=== PATIENT | female | born 1990 | race Caucasian/White ===

== ENCOUNTER 2017-01-20 13:00 | Inpatient (IN) | payer BC ==
[2017-01-20 18:42] VITALS: BMI 33.4
--- NOTE | 2017-01-20 20:27 | HP ---
Admission ROS [facility] Chief Complaint: I WANT TO GO TO REHAB Allergies/Adverse Reactions: Allergies Allergy/AdvReac Type Severity Reaction Status Date / Time Fish Containing Products Allergy Mild Verified 01/20/17 19:31 turkey Allergy Mild Hives Verified 01/20/17 19:31 History of Present Illness: 26 YEARS OLD FEMALE WITH LONG HISTORY OF OPIATE NICOTINE, HAS ASTHMA AND LEFT ANKLE CHRONIC JPAIN SINCE 2014 AND BIPOLAR IS ADMITTED TO REHAB Exam Limitations: No Limitations - Ebola screening Have you traveled outside of the country in the last 21 days: No Have you had contact with anyone from an Ebola affected area: No Have you been sick,other than usual withdrawal symptoms: No Do you have a fever: No - Review of Systems Constitutional: Weight Stable EENT: reports: No Symptoms Reported Respiratory: reports: SOB with Exertion Cardiac: reports: No Symptoms Reported GI: reports: Constipated : reports: Flank Pain Musculoskeletal: reports: Back Pain, Joint Pain (LEFT ANKLE), Muscle Pain (KNEES ) Integumentary: reports: No Symptoms Reported Neuro: reports: Seizure (2014 NO TREATMENT), Tremors Endocrine: reports: No Symptoms Reported Hematology: reports: No Symptoms Reported Psychiatric: reports: Judgement Intact, Orientated x3, Anxious, Depressed Other Systems: Reviewed and Negative Patient History - Patient Medical History Hx Anemia: No Hx Asthma: Yes Hx Chronic Obstructive Pulmonary Disease (COPD): No Hx Cancer: No Hx Cardiac Disorders: No Hx Congestive Heart Failure: No Hx Hypertension: No Hx Hypercholesterolemia: No Hx Pacemaker: No HX Cerebrovascular Accident: No Hx Seizures: Yes (2014) Hx Dementia: No Hx Diabetes: No Hx Gastrointestinal Disorders: No Hx Liver Disease: No Hx Genitourinary Disorders: No Hx Sexually Transmitted Disorders: No Hx Renal Disease (ESRD): No Hx Thyroid Disease: No Hx Human Immunodeficiency Virus (HIV): No Hx Hepatitis C: No Hx Depression: No Hx Suicide Attempt: No Hx Bipolar Disorder: Yes Hx Schizophrenia: No - Patient Surgical History Past Surgical History: Yes Hx Neurologic Surgery: No Hx Cataract Extraction: No Hx Cardiac Surgery: No Hx Lung Surgery: No Hx Breast Surgery: No Hx Breast Biopsy: No Hx Abdominal Surgery: No Hx Appendectomy: No Hx Cholecystectomy: No Hx Genitourinary Surgery: No Hx Section: No Hx Orthopedic Surgery: Yes (LEFT ANKLE 2014) Hx Hysterectomy: No Anesthesia Reaction: No - PPD History Previous Implant?: Yes Documented Results: Negative w/proof Implanted On Prior [facility] Admission?: No PPD to be Administered?: Yes - Reproductive History Patient is a Female of Child Bearing Age (11 -55 yrs old): Yes Last Menstrual Period: 01/15/17 Patient : No - Smoking Cessation Smoking history: Current every day smoker Have you smoked in the past 12 months: Yes Aproximately how many cigarettes per day: 3 Cigars Per Day: 0 Hx Chewing Tobacco Use: No Initiated information on smoking cessation: Yes 'Breaking Loose' booklet given: 01/20/17 - Substance & Tx. History Hx Alcohol Use: No Hx Substance Use: Yes Substance Use Type: Opiates Hx Substance Use Treatment: Yes - Substances Abused Heroin Route: Injection Frequency: Daily Amount used: 2 BOUNDL Age of first use: 19 Date of Last Use: 01/13/17 Family Disease History - Family Disease History Family Disease History: Diabetes: Father, Mother, Heart Disease: Father Admission Physical Exam [facility] - Vital Signs Vital Signs: Vital Signs - 24 hr 01/20/17 18:39 Temperature 96.3 F L Pulse Rate 91 H Respiratory 20 Rate Blood Pressure 121/69 - Physical General Appearance: Yes: No Apparent Distress, Appropriately Dressed, Obese HEENTM: Yes: Hearing grossly Normal, Normal ENT Inspection, Normocephalic, Normal Voice Respiratory: Yes: Chest Non-Tender, Lungs Clear, Normal Breath Sounds, No Respiratory Distress, No Accessory Muscle Use Neck: Yes: Supple, Trachea in good position Breast: Yes: Breasts Symetrical Cardiology: Yes: Regular Rhythm, Regular Rate, S1, S2 Abdominal: Yes: Non Tender, Soft Genitourinary: Yes: Within Normal Limits Back: Yes: Normal Inspection Musculoskeletal: Yes: full range of Motion, Gait Steady, Muscle Pain (LEFT ANKLE ) Extremities: Yes: Normal Range of Motion, Non-Tender, Swelling (RIGHT ANKLE) Neurological: Yes: Alert, Motor Strength 5/5, Normal Response, Depressed Affect Integumentary: Yes: Warm Lymphatic: Yes: Within Normal Limits - Diagnostic (1) Opioid dependence with withdrawal Current Visit: Yes Status: Acute (2) Nicotine dependence Current Visit: Yes Status: Acute Qualifiers: Nicotine product type: cigarettes Substance use status: in withdrawal Qualified Code(s): F17.213 - Nicotine dependence, cigarettes, with withdrawal (3) Asthma Current Visit: Yes Status: Acute Qualifiers: Asthma severity: mild intermittent Asthma complication type: with status asthmaticus Qualified Code(s): J45.22 - Mild intermittent asthma with status asthmaticus (4) Bipolar II disorder Current Visit: Yes Status: Suspected (5) Chronic pain of right ankle Current Visit: Yes Status: Chronic Comment: SWELL OF THE RIGHT ANKLE Cleared for Admission [facility] - Detox or Rehab [facility] Level of Care: Observation Bed Detox Regimen/Protocol: Not Applicable Claeared for Rehab Admission: Yes [facility] Breath Alcohol Content Breath Alcohol Content: 0 Urine Pregancy Test - Result Urine Test Results: Negative- NO Line Present Urine Drug Screen - Results Drug Screen Negative: No Urine Drug Screen Results: OPI-Opiates, BZO-Benzodiazepines, TCA-Tricyclic Antidepress
[2017-01-20] MEDS ORDERED: MAGNESIUM CITRATE 300 ML BOTTLE PO PRN (20:37)
[2017-01-20] MEDS ORDERED: P-EPHED 60MG/TRIPROLIDI 2.5MG TABLET PO PRN (20:37)
[2017-01-20] MEDS ORDERED: NICOTINE POLACRILEX 2 MG GUM BC PRN (20:37)
[2017-01-20] MEDS ORDERED: LOPERAMIDE HCL 2 MG CAPSULE PO PRN (20:37)
[2017-01-20] MEDS ORDERED: MAGNESIUM HYDROX 2400MG/30ML ORAL SUSPENSION 30 ML CUP PO PRN (20:37)
[2017-01-20] MEDS ORDERED: MAG HYDROX/AL HYDROX/SIMETH 30 ML UNIT-DOSE CUP PO PRN (20:37)
[2017-01-20] MEDS ORDERED: guaiFENesin/D-METHORPHAN HB 10 ML UNIT-DOSE CUPS PO PRN (20:37)
[2017-01-20] MEDS ORDERED: ACETAMINOPHEN 325 MG TABLET (FP) PO PRN (20:37)
[2017-01-20] MEDS ORDERED: IBUPROFEN 400 MG TABLET (FP) PO PRN (20:37)
[2017-01-20] MEDS ORDERED: MENTHOL/PHENOL 1 EACH UD MM PRN (20:37)
[2017-01-20] MEDS ORDERED: ALBUTEROL SO4 6.7 GM HFA INHALER IH PRN (20:42)
[2017-01-20] MEDS ORDERED: ALBUTEROL SO4 2.5/IPRATROPIUM 0.5 INH SOL 3 ML VIAL.NEB. NEB PRN (20:43)
[2017-01-20] MEDS: CYCLOBENZAPRINE HCL 10 MG TABLET (FP) PO PRN (22:58)
[2017-01-20] MEDS: GABAPENTIN 300 MG CAPSULE (FP) PO SCH (22:58)
[2017-01-20] MEDS: diphenhydrAMINE HCL 50 MG CAPSULE PO PRN (22:58)
[2017-01-20] MEDS: THIAMINE HCL 100 MG TABLET (FP) PO SCH (23:02)
[2017-01-20 23:11] LABS: URINE APPEARANCE TURBID; URINE BILIRUBIN NEGATIVE (NEGATIVE); URINE BLOOD NEGATIVE (NEGATIVE); URINE COLOR AMBER; URINE GLUCOSE (UA) NEGATIVE (NEGATIVE); URINE KETONE NEGATIVE (NEGATIVE); URINE LEUK ESTERASE NEGATIVE (NEGATIVE); URINE NITRITE NEGATIVE (NEGATIVE); URINE PROTEIN NEGATIVE (NEGATIVE); URINE UROBILINOGEN NEGATIVE E.U./dl (0.2-1.0)
[2017-01-21] MEDS: GABAPENTIN 300 MG CAPSULE (FP) PO SCH ×3 (07:06→21:18)
[2017-01-21 10:39] LABS: MCHC 32.4 g/dl (32.0-36.0); MEAN CELL VOLUME 80.3 fl (80-96); MEAN PLT VOLUME 9.7 fl (7.5-11.1); PLATELET COUNT 217 K/MM3 (134-434); RDW 17.6 % (11.6-15.6); WHITE BLOOD COUNT 8.4 K/mm3 (4.0-10.0)
[2017-01-21] MEDS: NICOTINE 14 MG/24 HOURS TOPICAL PATCH TD SCH (10:39)
[2017-01-21] MEDS: PRENATAL VITAMINS W/ FOLIC ACID TABLET (FP) PO SCH (10:39)
[2017-01-21] MEDS: CYCLOBENZAPRINE HCL 10 MG TABLET (FP) PO PRN (10:42)
[2017-01-21 10:51] LABS: ALBUMIN 3.4 g/dl (3.4-5.0); ALK PHOS 59 U/L (45-117); ANION GAP 8 (8-16); BILIRUBIN,TOTAL 0.2 mg/dL (0.2-1.0); CALCIUM 8.7 mg/dL (8.5-10.1); CO2 24 mmol/L (21-32); CREATININE 0.9 mg/dL (0.55-1.02); GLUCOSE,RANDOM 77 mg/dL (74-106); SGOT/AST 7 U/L (15-37); SGPT/ALT 12 U/L (12-78); TOT PROT 6.7 g/dl (6.4-8.2)
[2017-01-21] MEDS ORDERED: IBUPROFEN 400 MG TABLET (FP) PO PRN (14:46)
[2017-01-21] MEDS: traZODone HCL 50 MG TABLET (FP) PO PRN ×2 (15:31→21:18)
[2017-01-21] MEDS: FUROSEMIDE 20 MG TABLET (FP) PO SCH (15:31)
--- NOTE | 2017-01-21 15:46 | HP ---
Psychiatrist Admission - Data Date of interview: 01/21/17 Admission source: [facility] Identifying data: This is the first 3e inpatient rehabilitation admission for this 26 year old [place]ocanian/Rumanian female, who is single, residing in [facility]. Medical History: h/o asthma, seizure x1 in 2015 after head injury, left ankle surgery with chronic pain and swelling, also swelling of right ankle, and arthritis of back, smokes 3-4 cigarettes a day. Psychiatric History: Patient reports was dianosed as Bipolar disorder and Anxiety, on and off medications states she geat klonopin 2 mg po tid for anxiety , topamax 100 mg po bid, gabapentin 600 mg po tid, states was on hgh dosage of lithium while in rehabilitation treatment program and trazodone prn for anxiety. Reports no history of psychiatric hospiltaliztions except for one ER visit a few months ago when he sister called 911 "she thought I was suicidal and needed help", states she was discharged after 24 hours of observation. Patient is irritable and angry. Physical/Sexual Abuse/Trauma History: Denies history of abuse Vital Signs: Vital Signs - 24 hr 01/20/17 01/21/17 01/21/17 18:39 00:30 03:30 Temperature 96.3 F L Pulse Rate 91 H Respiratory 20 16 16 Rate Blood Pressure 121/69 01/21/17 15:30 Temperature Pulse Rate 77 Respiratory Rate Blood Pressure 123/77 Allergies/Adverse Reactions: Allergies Allergy/AdvReac Type Severity Reaction Status Date / Time Fish Containing Products Allergy Mild Verified 01/20/17 19:31 turkey Allergy Mild Hives Verified 01/20/17 19:31 Date of last physical exam: 01/20/17 Concur with the findings of this exam: Yes - Substance Abuse/Tx History Hx Alcohol Use: No Hx Substance Use: Yes Substance Use Type: Heroin (up to 20 bags a day injecting), Tranquilizers ( klonopin states prescribed as PRN) Hx Substance Use Treatment: Yes - Admission Criteria Previous failed treatment: Yes Poor recovery environment: Yes Comorbidities: Yes Lacks judgement: Yes Mental Status Exam - Mental Status Exam Alert and Oriented to: Time, Place, Person Cognitive Function: Grossly Intact Patient Appearance: Disheveled Mood: Angry, Depressed, Anxious, Irritable Affect: Mood Congruent Patient Behavior: Cooperative Speech Pattern: Clear, Appropriate Voice Loudness: Normal Thought Process: Intact, Goal Oriented Thought Disorder: Not Present Hallucinations: Denies Suicidal Ideation: Denies Homicidal Ideation: Denies Insight/Judgement: Fair Sleep: Fair, Difficulty falling asleep Appetite: Fair Muscle strength/Tone: Normal Gait/Station: Normal Psychiatric Findings - Problem List ([place] 1, 2,3) (1) Nicotine dependence Current Visit: Yes Status: Acute Qualifiers: Nicotine product type: cigarettes Substance use status: in withdrawal Qualified Code(s): F17.213 - Nicotine dependence, cigarettes, with withdrawal (2) Chronic pain of right ankle Current Visit: Yes Status: Chronic Comment: SWELL OF THE RIGHT ANKLE (3) Bipolar II disorder Current Visit: Yes Status: Suspected (4) Opioid dependence Current Visit: Yes Status: Acute - Initial Treatment Plan Initial Treatment Plan: continue topamax, gabapentin, add lithium 150 mg po bid( needs adjustment),tazodone 50 mg po q 4 hrs prn, monitor rpogress as needed.
--- NOTE | 2017-01-21 18:01 | EKG ---
Test Reason : Blood Pressure : / mmHG Vent. Rate : 068 BPM Atrial Rate : 068 BPM P-R Int : 144 ms QRS Dur : 094 ms QT Int : 416 ms P-R-T Axes : 073 061 051 degrees QTc Int : 442 ms NORMAL SINUS RHYTHM NORMAL ECG NO PREVIOUS ECGS AVAILABLE Confirmed by MELISSA NY MD ([id number]) on 01/21/2017 6:01:22 PM Referred By: LUIS Confirmed By:MELISSA NY MD
[2017-01-21] MEDS: THIAMINE HCL 100 MG TABLET (FP) PO SCH (21:18)
[2017-01-21] MEDS: TOPIRAMATE 100 MG TABLET PO SCH (21:18)
[2017-01-21] MEDS: LITHIUM CARBONATE 150 MG CAPSULE PO SCH (21:19)
[2017-01-22] MEDS: GABAPENTIN 300 MG CAPSULE (FP) PO SCH ×3 (06:36→23:02)
[2017-01-22] MEDS: FUROSEMIDE 20 MG TABLET (FP) PO SCH (10:46)
[2017-01-22] MEDS: PRENATAL VITAMINS W/ FOLIC ACID TABLET (FP) PO SCH (10:46)
[2017-01-22] MEDS: TOPIRAMATE 100 MG TABLET PO SCH ×2 (10:46→23:02)
[2017-01-22] MEDS: LITHIUM CARBONATE 150 MG CAPSULE PO SCH ×2 (10:46→23:02)
[2017-01-22] MEDS: NICOTINE 14 MG/24 HOURS TOPICAL PATCH TD SCH (10:46)
[2017-01-22] MEDS ORDERED: cloNIDine HCL 0.1 MG TABLET PO ONE (17:00)
[2017-01-22] MEDS: hydrOXYzine PAMOATE 50 MG CAPSULE (FP) PO PRN (17:10)
[2017-01-22] MEDS ORDERED: PT OWN MED DRAWER 7, Y5N ONE (19:29)
[2017-01-22] MEDS: cloNIDine HCL 0.1 MG TABLET PO SCH (23:02)
[2017-01-22] MEDS: CYCLOBENZAPRINE HCL 10 MG TABLET (FP) PO SCH (23:02)
[2017-01-22] MEDS: THIAMINE HCL 100 MG TABLET (FP) PO SCH (23:03)
[2017-01-23] MEDS: hydrOXYzine PAMOATE 50 MG CAPSULE (FP) PO PRN (03:34)
[2017-01-23] MEDS: traZODone HCL 50 MG TABLET (FP) PO PRN (03:34)
[2017-01-23] MEDS: GABAPENTIN 300 MG CAPSULE (FP) PO SCH ×3 (06:43→21:19)
[2017-01-23] MEDS: CYCLOBENZAPRINE HCL 10 MG TABLET (FP) PO SCH ×3 (06:44→21:18)
[2017-01-23] MEDS ORDERED: PT OWN MED DRAWER 7, Y5N ONE (08:25)
[2017-01-23] MEDS: PRENATAL VITAMINS W/ FOLIC ACID TABLET (FP) PO SCH (11:07)
[2017-01-23] MEDS: FUROSEMIDE 20 MG TABLET (FP) PO SCH (11:08)
[2017-01-23] MEDS: TOPIRAMATE 100 MG TABLET PO SCH ×2 (11:08→21:18)
[2017-01-23] MEDS: NICOTINE 14 MG/24 HOURS TOPICAL PATCH TD SCH (11:08)
[2017-01-23] MEDS: LITHIUM CARBONATE 150 MG CAPSULE PO SCH ×2 (11:08→21:20)
[2017-01-23] MEDS: cloNIDine HCL 0.1 MG TABLET PO SCH ×2 (11:08→21:19)
[2017-01-23] MEDS: THIAMINE HCL 100 MG TABLET (FP) PO SCH (21:18)
[2017-01-24] MEDS: GABAPENTIN 300 MG CAPSULE (FP) PO SCH ×3 (07:10→21:21)
[2017-01-24] MEDS: CYCLOBENZAPRINE HCL 10 MG TABLET (FP) PO SCH ×3 (07:10→21:21)
[2017-01-24] MEDS ORDERED: PT OWN MED DRAWER 7, Y5N ONE (08:13)
[2017-01-24] MEDS: TOPIRAMATE 100 MG TABLET PO SCH ×2 (10:19→21:21)
[2017-01-24] MEDS: PRENATAL VITAMINS W/ FOLIC ACID TABLET (FP) PO SCH (10:19)
[2017-01-24] MEDS: LITHIUM CARBONATE 150 MG CAPSULE PO SCH ×2 (10:19→21:21)
[2017-01-24] MEDS: NICOTINE 14 MG/24 HOURS TOPICAL PATCH TD SCH (10:20)
[2017-01-24] MEDS: FUROSEMIDE 20 MG TABLET (FP) PO SCH (10:25)
[2017-01-24] MEDS: cloNIDine HCL 0.1 MG TABLET PO SCH ×2 (10:25→21:21)
[2017-01-24] MEDS ORDERED: ALBUTEROL SO4 2.5/IPRATROPIUM 0.5 INH SOL 3 ML VIAL.NEB. NEB PRN (14:33)
[2017-01-24] MEDS: THIAMINE HCL 100 MG TABLET (FP) PO SCH (21:23)
[2017-01-25] MEDS: CYCLOBENZAPRINE HCL 10 MG TABLET (FP) PO SCH ×3 (06:28→21:08)
[2017-01-25] MEDS: GABAPENTIN 300 MG CAPSULE (FP) PO SCH ×3 (06:28→21:08)
[2017-01-25] MEDS: FUROSEMIDE 20 MG TABLET (FP) PO SCH (09:47)
[2017-01-25] MEDS: NICOTINE 14 MG/24 HOURS TOPICAL PATCH TD SCH (09:48)
[2017-01-25] MEDS: PRENATAL VITAMINS W/ FOLIC ACID TABLET (FP) PO SCH (09:48)
[2017-01-25] MEDS: cloNIDine HCL 0.1 MG TABLET PO SCH ×2 (09:48→21:08)
[2017-01-25] MEDS: LITHIUM CARBONATE 150 MG CAPSULE PO SCH ×2 (09:48→21:08)
[2017-01-25] MEDS: TOPIRAMATE 100 MG TABLET PO SCH ×2 (09:48→21:09)
[2017-01-25] MEDS: traZODone HCL 50 MG TABLET (FP) PO PRN (09:50)
[2017-01-25] MEDS: THIAMINE HCL 100 MG TABLET (FP) PO SCH (21:08)
[2017-01-26] MEDS: GABAPENTIN 300 MG CAPSULE (FP) PO SCH ×3 (06:57→21:07)
[2017-01-26] MEDS: CYCLOBENZAPRINE HCL 10 MG TABLET (FP) PO SCH ×3 (06:57→21:07)
[2017-01-26] MEDS: cloNIDine HCL 0.1 MG TABLET PO SCH ×2 (09:55→21:07)
[2017-01-26] MEDS: PRENATAL VITAMINS W/ FOLIC ACID TABLET (FP) PO SCH (09:56)
[2017-01-26] MEDS: FUROSEMIDE 20 MG TABLET (FP) PO SCH (09:56)
[2017-01-26] MEDS: TOPIRAMATE 100 MG TABLET PO SCH ×2 (09:56→21:07)
[2017-01-26] MEDS: NICOTINE 14 MG/24 HOURS TOPICAL PATCH TD SCH (09:56)
[2017-01-26] MEDS: LITHIUM CARBONATE 150 MG CAPSULE PO SCH ×2 (09:56→21:07)
[2017-01-26] MEDS: THIAMINE HCL 100 MG TABLET (FP) PO SCH (21:07)
[2017-01-26] MEDS: SUMAtriptan SUCCINATE 50 MG TABLET PO PRN (22:57)
[2017-01-26] MEDS ORDERED: PT OWN MED DRAWER 7, Y5N ONE (22:58)
[2017-01-27] MEDS: CYCLOBENZAPRINE HCL 10 MG TABLET (FP) PO SCH ×4 (06:46→22:11)
[2017-01-27] MEDS: GABAPENTIN 300 MG CAPSULE (FP) PO SCH ×4 (06:46→21:16)
[2017-01-27] MEDS: FUROSEMIDE 20 MG TABLET (FP) PO SCH (09:49)
[2017-01-27] MEDS: PRENATAL VITAMINS W/ FOLIC ACID TABLET (FP) PO SCH (09:49)
[2017-01-27] MEDS: LITHIUM CARBONATE 150 MG CAPSULE PO SCH ×2 (09:49→21:16)
[2017-01-27] MEDS: cloNIDine HCL 0.1 MG TABLET PO SCH ×2 (09:49→22:11)
[2017-01-27] MEDS: TOPIRAMATE 100 MG TABLET PO SCH ×2 (09:49→21:16)
[2017-01-27] MEDS: NICOTINE 14 MG/24 HOURS TOPICAL PATCH TD SCH (09:50)
[2017-01-27] MEDS: traZODone HCL 50 MG TABLET (FP) PO PRN (21:15)
[2017-01-27] MEDS: THIAMINE HCL 100 MG TABLET (FP) PO SCH (22:12)
[2017-01-28] MEDS: CYCLOBENZAPRINE HCL 10 MG TABLET (FP) PO SCH ×3 (06:55→21:08)
[2017-01-28] MEDS: GABAPENTIN 300 MG CAPSULE (FP) PO SCH ×3 (06:55→21:08)
[2017-01-28] MEDS: NICOTINE 14 MG/24 HOURS TOPICAL PATCH TD SCH (10:03)
[2017-01-28] MEDS: TOPIRAMATE 100 MG TABLET PO SCH ×2 (10:04→21:08)
[2017-01-28] MEDS: LITHIUM CARBONATE 150 MG CAPSULE PO SCH ×2 (10:04→21:08)
[2017-01-28] MEDS: cloNIDine HCL 0.1 MG TABLET PO SCH ×2 (10:04→21:09)
[2017-01-28] MEDS: FUROSEMIDE 20 MG TABLET (FP) PO SCH (10:04)
[2017-01-28] MEDS: PRENATAL VITAMINS W/ FOLIC ACID TABLET (FP) PO SCH (10:05)
[2017-01-28] MEDS ORDERED: PT OWN MED DRAWER 7, Y5N ONE ×3 (10:44→21:45)
[2017-01-28] MEDS: THIAMINE HCL 100 MG TABLET (FP) PO SCH (21:08)
[2017-01-28] MEDS: traZODone HCL 50 MG TABLET (FP) PO PRN (21:09)
[2017-01-29] MEDS: CYCLOBENZAPRINE HCL 10 MG TABLET (FP) PO SCH ×3 (07:18→21:34)
[2017-01-29] MEDS: GABAPENTIN 300 MG CAPSULE (FP) PO SCH ×3 (07:18→21:35)
[2017-01-29] MEDS: FUROSEMIDE 20 MG TABLET (FP) PO SCH (10:04)
[2017-01-29] MEDS: PRENATAL VITAMINS W/ FOLIC ACID TABLET (FP) PO SCH (10:04)
[2017-01-29] MEDS: cloNIDine HCL 0.1 MG TABLET PO SCH (10:04)
[2017-01-29] MEDS: NICOTINE 14 MG/24 HOURS TOPICAL PATCH TD SCH (10:05)
[2017-01-29] MEDS: LITHIUM CARBONATE 150 MG CAPSULE PO SCH ×2 (10:05→21:35)
[2017-01-29] MEDS: TOPIRAMATE 100 MG TABLET PO SCH ×2 (10:05→21:35)
[2017-01-29] MEDS: THIAMINE HCL 100 MG TABLET (FP) PO SCH (21:34)
[2017-01-30] MEDS: GABAPENTIN 300 MG CAPSULE (FP) PO SCH ×3 (06:43→21:19)
[2017-01-30] MEDS: CYCLOBENZAPRINE HCL 10 MG TABLET (FP) PO SCH ×3 (06:43→21:19)
[2017-01-30] MEDS: NICOTINE 14 MG/24 HOURS TOPICAL PATCH TD SCH (10:06)
[2017-01-30] MEDS: PRENATAL VITAMINS W/ FOLIC ACID TABLET (FP) PO SCH (10:06)
[2017-01-30] MEDS: FUROSEMIDE 20 MG TABLET (FP) PO SCH (10:06)
[2017-01-30] MEDS: TOPIRAMATE 100 MG TABLET PO SCH ×2 (10:06→21:19)
[2017-01-30] MEDS: LITHIUM CARBONATE 150 MG CAPSULE PO SCH ×2 (10:06→21:20)
[2017-01-30] MEDS: DOCUSATE SODIUM 100 MG CAPSULE (FP) PO SCH ×2 (13:29→21:19)
[2017-01-30] MEDS: traZODone HCL 50 MG TABLET (FP) PO PRN (21:19)
[2017-01-30] MEDS: THIAMINE HCL 100 MG TABLET (FP) PO SCH (21:19)
[2017-01-31] MEDS: GABAPENTIN 300 MG CAPSULE (FP) PO SCH ×3 (06:32→21:20)
[2017-01-31] MEDS: CYCLOBENZAPRINE HCL 10 MG TABLET (FP) PO SCH ×3 (06:32→21:21)
[2017-01-31] MEDS: NICOTINE 14 MG/24 HOURS TOPICAL PATCH TD SCH (10:24)
[2017-01-31] MEDS: DOCUSATE SODIUM 100 MG CAPSULE (FP) PO SCH ×2 (10:24→21:20)
[2017-01-31] MEDS: LITHIUM CARBONATE 150 MG CAPSULE PO SCH ×2 (10:24→21:21)
[2017-01-31] MEDS: TOPIRAMATE 100 MG TABLET PO SCH ×2 (10:24→21:21)
[2017-01-31] MEDS: FUROSEMIDE 20 MG TABLET (FP) PO SCH (10:24)
[2017-01-31] MEDS: PRENATAL VITAMINS W/ FOLIC ACID TABLET (FP) PO SCH (10:24)
[2017-01-31] MEDS: THIAMINE HCL 100 MG TABLET (FP) PO SCH (21:22)
[2017-02-01] MEDS: GABAPENTIN 300 MG CAPSULE (FP) PO SCH ×3 (07:00→21:10)
[2017-02-01] MEDS: CYCLOBENZAPRINE HCL 10 MG TABLET (FP) PO SCH ×3 (07:00→21:11)
[2017-02-01] MEDS: TOPIRAMATE 100 MG TABLET PO SCH ×2 (09:59→21:10)
[2017-02-01] MEDS: LITHIUM CARBONATE 150 MG CAPSULE PO SCH ×2 (09:59→21:10)
[2017-02-01] MEDS: NICOTINE 14 MG/24 HOURS TOPICAL PATCH TD SCH (09:59)
[2017-02-01] MEDS: FUROSEMIDE 20 MG TABLET (FP) PO SCH (09:59)
[2017-02-01] MEDS: DOCUSATE SODIUM 100 MG CAPSULE (FP) PO SCH ×2 (09:59→21:10)
[2017-02-01] MEDS: PRENATAL VITAMINS W/ FOLIC ACID TABLET (FP) PO SCH (10:00)
[2017-02-01] MEDS: SUMAtriptan SUCCINATE 50 MG TABLET PO PRN (18:40)
[2017-02-01] MEDS: THIAMINE HCL 100 MG TABLET (FP) PO SCH (21:11)
[2017-02-02] MEDS: GABAPENTIN 300 MG CAPSULE (FP) PO SCH ×3 (06:56→21:10)
[2017-02-02] MEDS: CYCLOBENZAPRINE HCL 10 MG TABLET (FP) PO SCH ×3 (06:56→21:09)
[2017-02-02] MEDS: TOPIRAMATE 100 MG TABLET PO SCH ×2 (09:43→21:09)
[2017-02-02] MEDS: LITHIUM CARBONATE 150 MG CAPSULE PO SCH ×2 (09:43→21:09)
[2017-02-02] MEDS: DOCUSATE SODIUM 100 MG CAPSULE (FP) PO SCH ×2 (09:43→21:09)
[2017-02-02] MEDS: PRENATAL VITAMINS W/ FOLIC ACID TABLET (FP) PO SCH (09:44)
[2017-02-02] MEDS: NICOTINE 14 MG/24 HOURS TOPICAL PATCH TD SCH (09:44)
[2017-02-02] MEDS: FUROSEMIDE 20 MG TABLET (FP) PO SCH (09:44)
[2017-02-02] MEDS: THIAMINE HCL 100 MG TABLET (FP) PO SCH (21:10)
[2017-02-03] MEDS: GABAPENTIN 300 MG CAPSULE (FP) PO SCH ×3 (06:38→21:12)
[2017-02-03] MEDS: CYCLOBENZAPRINE HCL 10 MG TABLET (FP) PO SCH ×3 (06:38→21:12)
[2017-02-03] MEDS: TOPIRAMATE 100 MG TABLET PO SCH ×2 (09:54→21:12)
[2017-02-03] MEDS: DOCUSATE SODIUM 100 MG CAPSULE (FP) PO SCH ×2 (09:54→21:12)
[2017-02-03] MEDS: NICOTINE 14 MG/24 HOURS TOPICAL PATCH TD SCH (09:54)
[2017-02-03] MEDS: FUROSEMIDE 20 MG TABLET (FP) PO SCH (09:54)
[2017-02-03] MEDS: PRENATAL VITAMINS W/ FOLIC ACID TABLET (FP) PO SCH (09:55)
[2017-02-03] MEDS: LITHIUM CARBONATE 150 MG CAPSULE PO SCH ×2 (09:55→21:12)
[2017-02-03] MEDS: SUMAtriptan SUCCINATE 50 MG TABLET PO PRN (13:40)
[2017-02-03] MEDS: THIAMINE HCL 100 MG TABLET (FP) PO SCH (21:12)
[2017-02-04] MEDS: GABAPENTIN 300 MG CAPSULE (FP) PO SCH ×3 (06:43→21:20)
[2017-02-04] MEDS: CYCLOBENZAPRINE HCL 10 MG TABLET (FP) PO SCH ×3 (06:43→21:21)
[2017-02-04] MEDS: TOPIRAMATE 100 MG TABLET PO SCH ×2 (09:37→21:20)
[2017-02-04] MEDS: NICOTINE 14 MG/24 HOURS TOPICAL PATCH TD SCH (09:37)
[2017-02-04] MEDS: DOCUSATE SODIUM 100 MG CAPSULE (FP) PO SCH ×2 (09:37→21:20)
[2017-02-04] MEDS: PRENATAL VITAMINS W/ FOLIC ACID TABLET (FP) PO SCH (09:37)
[2017-02-04] MEDS: FUROSEMIDE 20 MG TABLET (FP) PO SCH (09:37)
[2017-02-04] MEDS: LITHIUM CARBONATE 150 MG CAPSULE PO SCH ×2 (09:37→21:21)
[2017-02-04] MEDS: THIAMINE HCL 100 MG TABLET (FP) PO SCH (21:21)
[2017-02-05] MEDS: CYCLOBENZAPRINE HCL 10 MG TABLET (FP) PO SCH ×3 (07:00→21:20)
[2017-02-05] MEDS: GABAPENTIN 300 MG CAPSULE (FP) PO SCH ×3 (07:00→21:20)
[2017-02-05] MEDS: LITHIUM CARBONATE 150 MG CAPSULE PO SCH ×2 (09:47→21:20)
[2017-02-05] MEDS: FUROSEMIDE 20 MG TABLET (FP) PO SCH (09:47)
[2017-02-05] MEDS: PRENATAL VITAMINS W/ FOLIC ACID TABLET (FP) PO SCH (09:47)
[2017-02-05] MEDS: TOPIRAMATE 100 MG TABLET PO SCH ×2 (09:47→21:20)
[2017-02-05] MEDS: DOCUSATE SODIUM 100 MG CAPSULE (FP) PO SCH ×2 (09:47→21:20)
[2017-02-05] MEDS: NICOTINE 14 MG/24 HOURS TOPICAL PATCH TD SCH (09:47)
[2017-02-05] MEDS: traZODone HCL 50 MG TABLET (FP) PO PRN (21:20)
[2017-02-05] MEDS: THIAMINE HCL 100 MG TABLET (FP) PO SCH (21:21)
[2017-02-06] MEDS: GABAPENTIN 300 MG CAPSULE (FP) PO SCH ×3 (07:06→21:47)
[2017-02-06] MEDS: CYCLOBENZAPRINE HCL 10 MG TABLET (FP) PO SCH ×3 (07:06→21:49)
[2017-02-06] MEDS: TOPIRAMATE 100 MG TABLET PO SCH ×2 (09:59→21:47)
[2017-02-06] MEDS: LITHIUM CARBONATE 150 MG CAPSULE PO SCH ×2 (09:59→21:47)
[2017-02-06] MEDS: FUROSEMIDE 20 MG TABLET (FP) PO SCH (09:59)
[2017-02-06] MEDS: DOCUSATE SODIUM 100 MG CAPSULE (FP) PO SCH ×2 (09:59→21:47)
[2017-02-06] MEDS: NICOTINE 14 MG/24 HOURS TOPICAL PATCH TD SCH (10:00)
[2017-02-06] MEDS: PRENATAL VITAMINS W/ FOLIC ACID TABLET (FP) PO SCH (10:00)
[2017-02-06] MEDS: diphenhydrAMINE HCL 50 MG CAPSULE PO PRN (21:48)
[2017-02-06] MEDS: THIAMINE HCL 100 MG TABLET (FP) PO SCH (21:49)
[2017-02-07] MEDS: GABAPENTIN 300 MG CAPSULE (FP) PO SCH ×3 (06:31→21:55)
[2017-02-07] MEDS: CYCLOBENZAPRINE HCL 10 MG TABLET (FP) PO SCH ×3 (06:31→21:55)
[2017-02-07] MEDS: NICOTINE 14 MG/24 HOURS TOPICAL PATCH TD SCH (10:23)
[2017-02-07] MEDS: LITHIUM CARBONATE 150 MG CAPSULE PO SCH ×2 (10:24→21:55)
[2017-02-07] MEDS: DOCUSATE SODIUM 100 MG CAPSULE (FP) PO SCH ×2 (10:24→21:55)
[2017-02-07] MEDS: TOPIRAMATE 100 MG TABLET PO SCH ×2 (10:24→21:55)
[2017-02-07] MEDS: FUROSEMIDE 20 MG TABLET (FP) PO SCH (10:24)
[2017-02-07] MEDS: PRENATAL VITAMINS W/ FOLIC ACID TABLET (FP) PO SCH (10:25)
[2017-02-07] MEDS: THIAMINE HCL 100 MG TABLET (FP) PO SCH (21:56)
[2017-02-08] MEDS: CYCLOBENZAPRINE HCL 10 MG TABLET (FP) PO SCH ×3 (06:47→21:36)
[2017-02-08] MEDS: GABAPENTIN 300 MG CAPSULE (FP) PO SCH ×3 (06:47→21:36)
[2017-02-08] MEDS: NICOTINE 14 MG/24 HOURS TOPICAL PATCH TD SCH (10:22)
[2017-02-08] MEDS: LITHIUM CARBONATE 150 MG CAPSULE PO SCH ×2 (10:23→21:36)
[2017-02-08] MEDS: FUROSEMIDE 20 MG TABLET (FP) PO SCH (10:23)
[2017-02-08] MEDS: PRENATAL VITAMINS W/ FOLIC ACID TABLET (FP) PO SCH (10:23)
[2017-02-08] MEDS: TOPIRAMATE 100 MG TABLET PO SCH ×2 (10:23→21:36)
[2017-02-08] MEDS: DOCUSATE SODIUM 100 MG CAPSULE (FP) PO SCH ×2 (10:24→21:36)
[2017-02-08] MEDS: traZODone HCL 50 MG TABLET (FP) PO PRN (21:36)
[2017-02-08] MEDS: THIAMINE HCL 100 MG TABLET (FP) PO SCH (21:37)
[2017-02-09] MEDS: GABAPENTIN 300 MG CAPSULE (FP) PO SCH ×3 (06:22→21:35)
[2017-02-09] MEDS: CYCLOBENZAPRINE HCL 10 MG TABLET (FP) PO SCH ×3 (06:22→21:34)
[2017-02-09] MEDS: FUROSEMIDE 20 MG TABLET (FP) PO SCH (10:26)
[2017-02-09] MEDS: NICOTINE 14 MG/24 HOURS TOPICAL PATCH TD SCH (10:27)
[2017-02-09] MEDS: TOPIRAMATE 100 MG TABLET PO SCH ×2 (10:28→21:35)
[2017-02-09] MEDS: LITHIUM CARBONATE 150 MG CAPSULE PO SCH ×2 (10:28→21:34)
[2017-02-09] MEDS: DOCUSATE SODIUM 100 MG CAPSULE (FP) PO SCH ×2 (10:28→21:35)
[2017-02-09] MEDS: PRENATAL VITAMINS W/ FOLIC ACID TABLET (FP) PO SCH (10:28)
[2017-02-09] MEDS: SUMAtriptan SUCCINATE 50 MG TABLET PO PRN (21:35)
[2017-02-09] MEDS: THIAMINE HCL 100 MG TABLET (FP) PO SCH (21:36)
[2017-02-10] MEDS: CYCLOBENZAPRINE HCL 10 MG TABLET (FP) PO SCH ×4 (07:15→21:33)
[2017-02-10] MEDS: GABAPENTIN 300 MG CAPSULE (FP) PO SCH ×4 (07:15→21:33)
[2017-02-10] MEDS: TOPIRAMATE 100 MG TABLET PO SCH ×2 (09:53→21:33)
[2017-02-10] MEDS: FUROSEMIDE 20 MG TABLET (FP) PO SCH (09:53)
[2017-02-10] MEDS: LITHIUM CARBONATE 150 MG CAPSULE PO SCH ×2 (09:53→21:33)
[2017-02-10] MEDS: NICOTINE 14 MG/24 HOURS TOPICAL PATCH TD SCH (09:53)
[2017-02-10] MEDS: DOCUSATE SODIUM 100 MG CAPSULE (FP) PO SCH ×2 (09:53→21:33)
[2017-02-10] MEDS: PRENATAL VITAMINS W/ FOLIC ACID TABLET (FP) PO SCH (09:55)
[2017-02-10] MEDS: THIAMINE HCL 100 MG TABLET (FP) PO SCH (21:34)
[2017-02-11] MEDS: CYCLOBENZAPRINE HCL 10 MG TABLET (FP) PO SCH ×3 (07:17→21:48)
[2017-02-11] MEDS: GABAPENTIN 300 MG CAPSULE (FP) PO SCH ×3 (07:18→21:49)
[2017-02-11] MEDS: DOCUSATE SODIUM 100 MG CAPSULE (FP) PO SCH ×2 (10:19→21:48)
[2017-02-11] MEDS: LITHIUM CARBONATE 150 MG CAPSULE PO SCH ×2 (10:19→21:48)
[2017-02-11] MEDS: FUROSEMIDE 20 MG TABLET (FP) PO SCH (10:19)
[2017-02-11] MEDS: TOPIRAMATE 100 MG TABLET PO SCH ×2 (10:19→21:48)
[2017-02-11] MEDS: PRENATAL VITAMINS W/ FOLIC ACID TABLET (FP) PO SCH ×2 (10:19)
[2017-02-11] MEDS: NICOTINE 14 MG/24 HOURS TOPICAL PATCH TD SCH (10:19)
[2017-02-11] MEDS: THIAMINE HCL 100 MG TABLET (FP) PO SCH (21:50)
[2017-02-12] MEDS: GABAPENTIN 300 MG CAPSULE (FP) PO SCH ×3 (06:51→21:44)
[2017-02-12] MEDS: CYCLOBENZAPRINE HCL 10 MG TABLET (FP) PO SCH ×3 (06:51→21:44)
--- NOTE | 2017-02-12 07:41 | PN ---
[facility] Progress Note Note: RECEIVED A CALL FROM MICHELE KEITH STATING THE PT WAS C/O CHEST PAIN. MACHINE BURRER REQUESTED AN EKG. ONCE ON FLOOR, MICHELE KEITH REPORTED THAT THE PT. REFUSED THE EKG. COMMUNITY CASE MANAGER WENT TO ASSESS THE PT. BUT SHE WAS IN THE SHOWER AND REFUSED TO COME OUT. Last Vital Signs Temp Pulse Resp BP Pulse Ox 98.4 F 89 18 145/84 02/12/17 07:42 02/12/17 07:42 02/12/17 07:42 02/12/17 07:42
[2017-02-12] MEDS: TOPIRAMATE 100 MG TABLET PO SCH (09:32)
[2017-02-12] MEDS: LITHIUM CARBONATE 150 MG CAPSULE PO SCH ×2 (09:32→21:44)
[2017-02-12] MEDS: DOCUSATE SODIUM 100 MG CAPSULE (FP) PO SCH ×2 (09:32→21:44)
[2017-02-12] MEDS: FUROSEMIDE 20 MG TABLET (FP) PO SCH (09:32)
[2017-02-12] MEDS: NICOTINE 14 MG/24 HOURS TOPICAL PATCH TD SCH (09:32)
[2017-02-12] MEDS: hydrOXYzine PAMOATE 50 MG CAPSULE (FP) PO PRN ×2 (09:34→15:17)
[2017-02-12] MEDS: PRENATAL VITAMINS W/ FOLIC ACID TABLET (FP) PO SCH (09:35)
--- NOTE | 2017-02-12 15:31 | PN ---
Psychiatric Progress Note Vital Signs: Vital Signs Period Temp Pulse Resp BP Sys/Maxwell Pulse Ox Last 24 Hr 98.1 F-98.4 F 89-89 18-19 116-145/70-84 100 Date of Session: 02/12/17 Chief Complaint:: Kar still anxious and having mood swings." Current Medications: Active Medications Generic Name Dose Route Start Last Admin Trade Name Freq PRN Reason Stop Dose Admin Acetaminophen 650 mg 01/20/17 20:37 Tylenol - PO Q4H PRN PAIN Al Hydroxide/Mg Hydroxide 30 ml 01/20/17 20:37 02/12/17 09:31 Mylanta Oral Suspension - PO 30 ml Q6H PRN Administration DYSPEPSIA Albuterol Sulfate 2 puff 01/20/17 20:42 Ventolin Hfa Inhaler - IH Q4H PRN SHORT OF BREATH/WHEEZING Cyclobenzaprine HCl 10 mg 01/22/17 22:00 02/12/17 13:26 Flexeril - PO 10 mg TID CAITLIN Administration Diphenhydramine HCl 50 mg 01/20/17 20:37 02/06/17 21:48 Benadryl - PO 50 mg HSMR1 PRN Administration INSOMNIA Docusate Sodium 100 mg 01/30/17 11:00 02/12/17 09:32 Colace - PO 100 mg BID CAITLIN Administration Eucalyptus/Menthol/Phenol/Sorbitol 1 each 01/20/17 20:37 Cepastat Lozenge - MM Q4H PRN SORE THROAT Furosemide 20 mg 01/21/17 15:00 02/12/17 09:32 Lasix - PO 20 mg DAILY CAITLIN Administration Gabapentin 600 mg 01/21/17 22:00 02/12/17 13:26 Neurontin - PO 600 mg TID CAITLIN Administration Guaifenesin 10 ml 01/20/17 20:37 Robitussin Dm - PO Q6H PRN COUGH Hydroxyzine Pamoate 50 mg 01/20/17 20:37 02/12/17 15:17 Vistaril - PO 50 mg Q4H PRN Administration AGITATION Ibuprofen 800 mg 01/21/17 14:46 02/11/17 11:35 Motrin - PO 800 mg Q6H PRN Administration SEVERE PAIN [place] Carbonate 150 mg 01/21/17 22:00 02/12/17 09:32 Eskalith - PO 150 mg BID CAITLIN Administration Loperamide HCl 4 mg 01/20/17 20:37 Imodium - PO Q6H PRN DIARRHEA Magnesium Citrate 300 ml 01/20/17 20:37 Citroma - PO Q48H PRN CONSTIPATION Magnesium Hydroxide 30 ml 01/20/17 20:37 Milk Of Magnesia - PO DAILY PRN CONSTIPATION Nicotine 14 mg 01/21/17 10:00 02/12/17 09:32 Nicoderm Patch - TD 14 mg DAILY CAITLIN Administration Nicotine Polacrilex 2 mg 01/20/17 20:37 Nicorette Gum - BC Q2H PRN NICOTINE REPLACEMENT RX Multivit/Folic Acid/Iron 1 tab 01/21/17 10:00 02/12/17 09:35 Vitamins ([facility]) - PO Not Given DAILY [facility] Pseudoephedrine/Triprolidine 1 combo 01/20/17 20:37 Actifed - PO TID PRN NASAL CONGESTION Sumatriptan Succinate 100 mg 01/22/17 15:41 02/09/17 21:35 Imitrex - PO 100 mg PRN PRN Administration HEADACHE Thiamine HCl 100 mg 01/20/17 22:00 02/11/17 21:50 Vitamin B1 - PO Not Given HS CAITLIN Topiramate 150 mg 02/12/17 22:00 Topamax - PO BID CAITLIN Trazodone HCl 50 mg 01/21/17 14:28 02/08/17 21:36 Desyrel - PO 50 mg Q4H PRN Administration ANXIETY Current Side Effect: No Lab tests ordered: No Lab tests reviewed: Yes Provider note:: Topamax 100 mg po bid will be adjusted to 150 mg po bid. Total face to face time:: 35
[2017-02-12] MEDS: THIAMINE HCL 100 MG TABLET (FP) PO SCH (21:46)
[2017-02-12] MEDS ORDERED: TOPIRAMATE 100 MG TABLET PO SCH (22:00)
[2017-02-13] MEDS: GABAPENTIN 300 MG CAPSULE (FP) PO SCH ×3 (07:07→21:44)
[2017-02-13] MEDS: CYCLOBENZAPRINE HCL 10 MG TABLET (FP) PO SCH ×3 (07:08→21:43)
[2017-02-13] MEDS: DOCUSATE SODIUM 100 MG CAPSULE (FP) PO SCH ×2 (10:20→21:44)
[2017-02-13] MEDS: LITHIUM CARBONATE 150 MG CAPSULE PO SCH ×2 (10:20→21:44)
[2017-02-13] MEDS: FUROSEMIDE 20 MG TABLET (FP) PO SCH (10:22)
[2017-02-13] MEDS: TOPIRAMATE 100 MG, TOPIRAMATE 50 MG PO SCH ×2 (10:22→21:43)
[2017-02-13] MEDS: NICOTINE 14 MG/24 HOURS TOPICAL PATCH TD SCH (10:23)
[2017-02-13] MEDS: PRENATAL VITAMINS W/ FOLIC ACID TABLET (FP) PO SCH (10:23)
[2017-02-13] MEDS ORDERED: PT OWN MED DRAWER 7, Y5N ONE (19:45)
[2017-02-13] MEDS: THIAMINE HCL 100 MG TABLET (FP) PO SCH (21:45)
[2017-02-14] MEDS: CYCLOBENZAPRINE HCL 10 MG TABLET (FP) PO SCH ×3 (06:33→21:49)
[2017-02-14] MEDS: GABAPENTIN 300 MG CAPSULE (FP) PO SCH ×3 (06:33→21:49)
[2017-02-14] MEDS: LITHIUM CARBONATE 150 MG CAPSULE PO SCH ×2 (10:30→21:48)
[2017-02-14] MEDS: DOCUSATE SODIUM 100 MG CAPSULE (FP) PO SCH ×2 (10:30→21:48)
[2017-02-14] MEDS: FUROSEMIDE 20 MG TABLET (FP) PO SCH (10:30)
[2017-02-14] MEDS: TOPIRAMATE 100 MG, TOPIRAMATE 50 MG PO SCH ×2 (10:30→21:49)
[2017-02-14] MEDS: NICOTINE 14 MG/24 HOURS TOPICAL PATCH TD SCH (10:30)
[2017-02-14] MEDS: PRENATAL VITAMINS W/ FOLIC ACID TABLET (FP) PO SCH (10:30)
[2017-02-14] MEDS ORDERED: TOPIRAMATE 100 MG TABLET ONE (20:05)
[2017-02-14] MEDS ORDERED: TOPIRAMATE 25 MG TABLET (FP) ONE (20:05)
[2017-02-14] MEDS: THIAMINE HCL 100 MG TABLET (FP) PO SCH (21:50)
[2017-02-15] MEDS: GABAPENTIN 300 MG CAPSULE (FP) PO SCH ×3 (06:51→21:37)
[2017-02-15] MEDS: CYCLOBENZAPRINE HCL 10 MG TABLET (FP) PO SCH ×3 (06:52→21:38)
[2017-02-15] MEDS ORDERED: PT OWN MED DRAWER 7, Y5N ONE (09:02)
[2017-02-15] MEDS: TOPIRAMATE 100 MG, TOPIRAMATE 50 MG PO SCH ×2 (10:31→21:37)
[2017-02-15] MEDS: DOCUSATE SODIUM 100 MG CAPSULE (FP) PO SCH ×2 (10:31→21:38)
[2017-02-15] MEDS: PRENATAL VITAMINS W/ FOLIC ACID TABLET (FP) PO SCH (10:31)
[2017-02-15] MEDS: NICOTINE 14 MG/24 HOURS TOPICAL PATCH TD SCH (10:32)
[2017-02-15] MEDS: FUROSEMIDE 20 MG TABLET (FP) PO SCH (10:32)
[2017-02-15] MEDS: LITHIUM CARBONATE 150 MG CAPSULE PO SCH ×2 (10:32→21:37)
[2017-02-15] MEDS ORDERED: TOPIRAMATE 25 MG TABLET (FP) ONE (19:35)
[2017-02-15] MEDS ORDERED: TOPIRAMATE 100 MG TABLET ONE (19:35)
[2017-02-15] MEDS: THIAMINE HCL 100 MG TABLET (FP) PO SCH (21:39)
[2017-02-16] MEDS: CYCLOBENZAPRINE HCL 10 MG TABLET (FP) PO SCH ×3 (07:03→21:45)
[2017-02-16] MEDS: GABAPENTIN 300 MG CAPSULE (FP) PO SCH ×3 (07:03→21:45)
[2017-02-16 07:30] VITALS: TEMP 97.9
[2017-02-16] MEDS ORDERED: TOPIRAMATE 25 MG TABLET (FP) ONE ×2 (08:38→19:33)
[2017-02-16] MEDS ORDERED: TOPIRAMATE 100 MG TABLET ONE ×2 (08:38→19:33)
[2017-02-16] MEDS: DOCUSATE SODIUM 100 MG CAPSULE (FP) PO SCH ×2 (09:58→21:46)
[2017-02-16] MEDS: FUROSEMIDE 20 MG TABLET (FP) PO SCH (09:58)
[2017-02-16] MEDS: LITHIUM CARBONATE 150 MG CAPSULE PO SCH ×2 (09:58→21:45)
[2017-02-16] MEDS: PRENATAL VITAMINS W/ FOLIC ACID TABLET (FP) PO SCH (09:58)
[2017-02-16] MEDS: NICOTINE 14 MG/24 HOURS TOPICAL PATCH TD SCH (09:58)
[2017-02-16] MEDS: TOPIRAMATE 100 MG, TOPIRAMATE 50 MG PO SCH ×2 (09:58→21:45)
[2017-02-16] MEDS: THIAMINE HCL 100 MG TABLET (FP) PO SCH (21:46)
[2017-02-17] MEDS: GABAPENTIN 300 MG CAPSULE (FP) PO SCH (06:20)
[2017-02-17] MEDS: CYCLOBENZAPRINE HCL 10 MG TABLET (FP) PO SCH (06:20)
[2017-02-17] MEDS ORDERED: TOPIRAMATE 25 MG TABLET (FP) ONE (08:49)
[2017-02-17] MEDS ORDERED: TOPIRAMATE 100 MG TABLET ONE (08:49)
--- NOTE | 2017-02-17 09:02 | PN ---
[id number] 76 18-18 125/80 Date of Session: 02/17/17 Chief Complaint:: Discharge visit HPI: Patient addressed Opioid dependendce comorbid with Bipolar disorder. ROS: unremarkable Current Medications: Active Medications Generic Name Dose Route Start Last Admin Trade Name Freq PRN Reason Stop Dose Admin Acetaminophen 650 mg 01/20/17 20:37 Tylenol - PO Q4H PRN PAIN Al Hydroxide/Mg Hydroxide 30 ml 01/20/17 20:37 02/12/17 09:31 Mylanta Oral Suspension - PO 30 ml Q6H PRN Administration DYSPEPSIA Albuterol Sulfate 2 puff 01/20/17 20:42 Ventolin Hfa Inhaler - IH Q4H PRN SHORT OF BREATH/WHEEZING Cyclobenzaprine HCl 10 mg 01/22/17 22:00 02/17/17 06:20 Flexeril - PO 10 mg TID CAITLIN Administration Diphenhydramine HCl 50 mg 01/20/17 20:37 02/06/17 21:48 Benadryl - PO 50 mg HSMR1 PRN Administration INSOMNIA Docusate Sodium 100 mg 01/30/17 11:00 02/16/17 21:46 Colace - PO Not Given BID CAITLIN Eucalyptus/Menthol/Phenol/Sorbitol 1 each 01/20/17 20:37 Cepastat Lozenge - MM Q4H PRN SORE THROAT Furosemide 20 mg 01/21/17 15:00 02/16/17 09:58 Lasix - PO 20 mg DAILY CAITLIN Administration Gabapentin 600 mg 01/21/17 22:00 02/17/17 06:20 Neurontin - PO 600 mg TID CAITLIN Administration Guaifenesin 10 ml 01/20/17 20:37 Robitussin Dm - PO Q6H PRN COUGH Hydroxyzine Pamoate 50 mg 01/20/17 20:37 02/12/17 15:17 Vistaril - PO 50 mg Q4H PRN Administration AGITATION Ibuprofen 800 mg 01/21/17 14:46 02/11/17 11:35 Motrin - PO 800 mg Q6H PRN Administration SEVERE PAIN [place] Carbonate 150 mg 01/21/17 22:00 02/16/17 21:45 Eskalith - PO 150 mg BID CAITLIN Administration Loperamide HCl 4 mg 01/20/17 20:37 Imodium - PO Q6H PRN DIARRHEA Magnesium Citrate 300 ml 01/20/17 20:37 Citroma - PO Q48H PRN CONSTIPATION Magnesium Hydroxide 30 ml 01/20/17 20:37 Milk Of Magnesia - PO DAILY PRN CONSTIPATION Nicotine 14 mg 01/21/17 10:00 02/16/17 09:58 Nicoderm Patch - TD 14 mg DAILY CAITLIN Administration Nicotine Polacrilex 2 mg 01/20/17 20:37 Nicorette Gum - BC Q2H PRN NICOTINE REPLACEMENT RX Multivit/Folic Acid/Iron 1 tab 01/21/17 10:00 02/16/17 09:58 Vitamins ([facility]) - PO Not Given DAILY [facility] Pseudoephedrine/Triprolidine 1 combo 01/20/17 20:37 Actifed - PO TID PRN NASAL CONGESTION Sumatriptan Succinate 100 mg 01/22/17 15:41 02/09/17 21:35 Imitrex - PO 100 mg PRN PRN Administration HEADACHE Thiamine HCl 100 mg 01/20/17 22:00 02/16/17 21:46 Vitamin B1 - PO Not Given HS CAITLIN Topiramate 100 mg/ Topiramate 150 mg 02/13/17 10:00 02/16/17 21:45 50 mg PO 150 mg BID CAITLIN Administration Trazodone HCl 50 mg 01/21/17 14:28 02/08/17 21:36 Desyrel - PO 50 mg Q4H PRN Administration ANXIETY Current Side Effect: No Lab tests ordered: No Lab tests reviewed: Yes Provider note:: Patient completed this program today.She has met ehr treatment goals and will continue to address her issues on outpatient basis at [facility].Patient continues to find that Trazodone 50 mg po hs,Topamax 150 mg po bid,Neurontin 600 mg po tid and Li 150 mg po bid help to control hermood instability,depression,anxiety and sleeping difficulties.Scripts for 30 days supply provided.Therpay provided focusing on relapse prevention including coping skills,suppoort system utilization to maintain recovery. Patient is stable for discharge today. Total face to face time:: 30 Psychiatric Treatment Plan - Problem List (1) Asthma Qualifiers: Asthma severity: mild intermittent Asthma complication type: with status asthmaticus Qualified Code(s): J45.22 - Mild intermittent asthma with status asthmaticus (2) Nicotine dependence Qualifiers: Nicotine product type: cigarettes Substance use status: in withdrawal Qualified Code(s): F17.213 - Nicotine dependence, cigarettes, with withdrawal (4) Chronic pain of right ankle Comment: SWELL OF THE RIGHT ANKLE
[2017-02-17 09:28] VITALS: BP 130/82; PULSE 99
[2017-02-17] MEDS: FUROSEMIDE 20 MG TABLET (FP) PO SCH (09:53)
[2017-02-17] MEDS: NICOTINE 14 MG/24 HOURS TOPICAL PATCH TD SCH (09:53)
[2017-02-17] MEDS: LITHIUM CARBONATE 150 MG CAPSULE PO SCH (09:53)
[2017-02-17] MEDS: TOPIRAMATE 100 MG, TOPIRAMATE 50 MG PO SCH (09:53)
[2017-02-17] MEDS: DOCUSATE SODIUM 100 MG CAPSULE (FP) PO SCH (09:54)
[2017-02-17] MEDS: PRENATAL VITAMINS W/ FOLIC ACID TABLET (FP) PO SCH (09:55)
== END 2017-02-17 10:10 | disposition home or self-care (01) | DRG 772 ==
LOC: YASAS 13:00 → Y3E 18:59
PROVIDERS: ADMIT Psychiatry & Neurology Psychiatry; ATTEND Psychiatry & Neurology Psychiatry
PROC: HZ42ZZZ Group Counseling for Substance Abuse Treatment, Cognitive-Behavioral (ICD-10-PCS; principal; 2017-02-17)
DX: F11.20 Opioid dependence, uncomplicated (principal); F17.213 Nicotine dependence, cigarettes, with withdrawal; F31.81 Bipolar II disorder; J45.22 Mild intermittent asthma with status asthmaticus; M25.571 Pain in right ankle and joints of right foot
CPT/HCPCS: 36415; 80053; 80178; 81003; 85027; 86593; 93005; 93010